=== PATIENT | female | born 1960 | race Caucasian/White ===

== ENCOUNTER 2024-07-03 09:09 | Emergency (ER) | payer BC, MEDICAID ==
[~2024-07-03] VITALS: Ht 162.6 cm; Wt 69.3 kg
[~2024-07-03 09:09] MED LIST: NO HOME MEDS
[2024-07-03 09:26] VITALS: TEMP 98
[2024-07-03] MEDS ORDERED: iohexol 300mg/ml 100ml inj. ONE (10:26)
[2024-07-03] MEDS: normal saline 1000ml 1,000 ML IV ONE (10:28)
[2024-07-03] MEDS: ondansetron/PF 4mg/2ml inj IV ONE (10:28)
[2024-07-03] MEDS: ketorolac trometh 15mg/ml vial 15 MG/ML ML IV ONE (10:28)
[2024-07-03 10:40] LABS: BASOPHILS # (AUTO) 0.1 X10'3 (0-0.2); EOSINOPHILS # (AUTO) 0.1 X10'3 (0-0.9); EOSINOPHILS % (AUTO) 1.3 % (0-6); HEMATOCRIT 37.4 % (35.0-45.0); HEMOGLOBIN 12.7 g/dl (12.0-16.0); LYMPHOCYTES # (AUTO) 1.6 X10'3 (1.1-4.8); LYMPHOCYTES % (AUTO) 20.1 % (21-51); MEAN CORPUSCULAR HEMOGLOBIN 32.6 PG (27.0-31.0); MEAN CORPUSCULAR HGB CONC 34.1 g/dL (33.0-36.5); MEAN CORPUSCULAR VOLUME 95.9 FL (78-98); MEAN PLATELET VOLUME 6.4 FL (7.4-10.4); MONOCYTES # (AUTO) 0.6 X10'3 (0-0.9); MONOCYTES % (AUTO) 7.5 % (2-12); NEUTROPHILS # (AUTO) 5.4 X10'3 (1.8-7.7); NEUTROPHILS % (AUTO) 70.1 % (42-75); PLATELET COUNT 329 X10'3 (140-440); RED CELL DISTRIBUTION WIDTH 13.3 % (11.5-14.5); WHITE BLOOD COUNT 7.7 X10'3 (4.5-11.0)
[2024-07-03 10:45] LABS: BILIRUBIN,URINE NEGATIVE (Neg); CLARITY,URINE SLIGHTLY CLOUDY (Clear); COLOR,URINE YELLOW (Yellow); GLUCOSE, URINE NEGATIVE (Neg); KETONES,URINE NEGATIVE (Neg); LEUKOCYTE ESTERASE ,URINE NEGATIVE (Neg); NITRITES, URINE NEGATIVE (Neg); OCCULT BLOOD,URINE NEGATIVE (Neg); PROTEIN,URINE NEGATIVE (Neg); UROBILINOGEN,URINE 0.2 E.U/dL (0.2-1.0)
[2024-07-03 10:52] LABS: UA COLLECTION TYPE CLN CATCH MIDSTREAM
[2024-07-03 10:53] LABS: BACTERIA,URINE 2+ /HPF (Neg)
[2024-07-03 10:54] LABS: RBC,URINE 0-2 /HPF (0-2); SQUAMOUS EPITHELIAL CELL,UR MANY /LPF (FEW); WBC,URINE 0-4 /HPF (0-4)
[2024-07-03 11:02] LABS: ALANINE AMINOTRANSFERASE 16 U/L (12-78); ALBUMIN 3.7 G/DL (3.4-5.0); ALKALINE PHOSPHATASE 55 IU/L (46-116); ANION GAP 7 (8-16); ASPARTATE AMINO TRANSFERASE 15 U/L (10-37); BILIRUBIN,TOTAL 0.4 MG/DL (0.1-1.0); BLOOD UREA NITROGEN 23 MG/DL (7-18); BUN/CREATININE RATIO 22.5 (10.0-20.0); CALCIUM 9.4 MG/DL (8.5-10.1); CHLORIDE 104 MMOL/L (99-107); CREATININE 1.02 MG/DL (0.40-0.90); GLUCOSE 94 MG/DL (70-104); LIPASE 55 U/L (16-77); POTASSIUM 4.7 MMOL/L (3.5-5.1); SODIUM 140 MMOL/L (135-145); TOTAL CARBON DIOXIDE 28.9 MMOL/L (24-32); TOTAL PROTEIN 7.4 G/DL (6.4-8.2); eCRCL 49 ML/MIN; eGFR 55 ML/MIN
[2024-07-03 12:43] VITALS: BP 123/92; PULSE 62; RESP 16; O2SAT 99
== END 2024-07-03 12:55 | disposition home or self-care (01) ==
LOC: ER 09:10
DX: N28.89 Other specified disorders of kidney and ureter (principal); R10.12 Left upper quadrant pain; I10 Essential (primary) hypertension; F32.A Depression, unspecified; Z88.5 Allergy status to narcotic agent; Z90.49 Acquired absence of other specified parts of digestive tract
CPT/HCPCS: 36415; 74177; 80053; 81001; 83605; 83690; 85025; 96360; 96361; 99285; J7030; Q9967

== ENCOUNTER 2025-04-29 06:12 | Emergency (ER) | payer MEDICAID ==
[~2025-04-29] VITALS: Ht 162.6 cm; Wt 66.4 kg
--- NOTE | 2025-04-29 07:25 | Physician Documentation ---
History of Present Illness ~ Chief Complaint: Hip pain Stated Complaint: BACK PAIN Time Seen by MD: 06:30 Primary Medical Doctor: MARKO BOWERS 64-year-old female presenting with lower back, bilateral hip and upper back and neck pain after she sustained a mechanical fall four days ago. Patient states that she was at home when her legs appear to have given out on her and she fell landing mainly on her right side. She had immediate pain in her lower back and in both of her hips mainly on the right. She was able to get up with the help of a family member but since that time she has had severe pain in the lower back, bilateral hips, neck and upper back. She also states that prior to the fall she was experiencing a lot of tingling like sensations in all of her extremities as well as some weakness which is unusual for her. She denies any dizziness, syncopal events, chest pain, fever, chills or any other associated symptoms. Tetanus within 5 Years?: Yes Medication Reconciliation Allergies: Coded Allergies: codeine (Verified Allergy, Unknown, 07/03/24) Miscellaneous Medications Home Med List (No Home Medications), (Reported) Past Medical History Past Medical History: Hypertension, Depression Past Surgical History: cholecystectomy Other Past Family History: heart disease Alcohol Use: None Lives with: S/O Lives In: Home Occupation: employed Review of Systems All Other Systems at this time: Reviewed and Negative Physical Exam Vital Signs: Temperature: 97.2, Source: Temporal, Heart Rate: 65, Respiratory Rate: 15, BP: 109/70, Pulse Oximetry: 99, Weight: 66.360 Physical Exam I have reviewed the triage vitals. CONST: Well developed and well nourished. In no acute distress HENT: Head Atraumatic EYES: Pupils are equal, round and reactive to light. Normal conjunctiva NECK: Normal range of motion. Supple. CARDIO: Normal rate and regular rhythm. No murmurs, rubs, or gallops. S1, S2. PULM/CHEST: No respiratory distress. Lungs clear to auscultation. No wheeze ABD: Soft and nontender. Nondistended. Bowel sounds normal. No guarding. : Exam deferred MSK: Antalgic gait due to pain. Patient is unsteady on her feet. Back-there is normal appearance of the lower back, there is tenderness to palpation over the lumbar spine mainly over L4 and L5 vertebrae. Flexion and extension of the spine causes severe pain. Straight leg raise is positive on the right. There is normal appearance of the mid and upper back areas. Tenderness to palpation over the thoracic spine mainly T8 through T12. Normal appearance of the neck. Tenderness to palpation over the cervical vertebrae about C4 through C7. Range of motion causes some pain. NEURO: Alert and oriented to person, place and time. Moving all extremities SKIN: Warm and dry. PSYCH: Normal mood and affect. Good eye contact. Progress Results/Orders Results/Orders Orders - QUENTIN JOSHI MD Ct Pelvis (04/29/25 ) Ct Cervical Spine (04/29/25 ) Ct T&L Spine (04/29/25 ) Regular Diet (04/29/25 Lunch) Completed Orders - QUENTIN JOSHI MD Electrocardiogram (04/29/25 07:00) Cbc/Diff (04/29/25 07:00) ESR (04/29/25 07:00) C-Reactive Protein (04/29/25 07:00) Urinalysis, Cult If Indicated (04/29/25 07:00) MG (04/29/25 07:00) Hs Troponin I W Calculations (04/29/25 07:00) CMP (04/29/25 07:00) Ct Pelvis (04/29/25 ) Ct Cervical Spine (04/29/25 ) Ketorolac Trometh 30mg/Ml Vial (Toradol (04/29/25 07:05) Acetaminophen 325mg Tablet (Tylenol Tabl (04/29/25 07:05) Ct T&L Spine (04/29/25 ) Oxycodone Immed Release Tablet (Oxy Ir T (04/29/25 08:40) Medications Received in ER Medications (Trade) Dose Ordered Sig/Reyes Route PRN Reason Start Time Stop Time Status Last Admin Dose Admin (Toradol inj. 30mg/ml) 30 mg ONCE ONCE IV 04/29/25 07:05 04/29/25 07:06 DC 04/29/25 07:38 30 MG (Tylenol tablet) 975 mg ONCE ONCE PO 04/29/25 07:05 04/29/25 07:06 DC 04/29/25 07:37 975 MG (OXY IR tablet) 10 mg ONCE ONCE PO 04/29/25 08:40 04/29/25 08:47 DC 04/29/25 08:57 10 MG Vital Signs 04/29/25 04/29/25 04/29/25 04/29/25 06:13 07:38 07:38 07:46 Temp 97.2 97.4 Pulse 65 60 Resp 15 16 16 16 B/P (MAP) 109/70 135/75 (95) Pulse Ox 99 98 O2 Flow Rate 0 04/29/25 09:38 Temp 97.4 Pulse 54 Resp 18 B/P (MAP) 129/77 (94) Pulse Ox 95 O2 Flow Rate 0 Laboratory Tests Test 04/29/25 07:45 04/29/25 08:54 White Blood Count 4.3 L Red Blood Count 4.26 Hemoglobin 13.7 Hematocrit 39.8 Mean Corpuscular Volume 93.4 Mean Corpuscular Hemoglobin 32.2 H Mean Corpuscular Hemoglobin Concent 34.5 Red Cell Distribution Width 13.5 Platelet Count 341 Mean Platelet Volume 6.4 L Neutrophils (%) (Auto) 53.8 Lymphocytes (%) (Auto) 29.4 Monocytes (%) (Auto) 11.5 Eosinophils (%) (Auto) 4.0 Basophils (%) (Auto) 1.3 H Neutrophils # (Auto) 2.3 Lymphocytes # (Auto) 1.3 Monocytes # (Auto) 0.5 Eosinophils # (Auto) 0.2 Basophils # (Auto) 0.1 CBC Comment Erythrocyte Sedimentation Rate 13 Sodium Level 132 L Potassium Level 5.0 Chloride Level 97 L Carbon Dioxide Level 28.0 Anion Gap 7 L Blood Urea Nitrogen 30 H Creatinine 1.15 H Estimated GFR/1.73 m2 48 BUN/Creatinine Ratio 26.1 H Glucose Level 88 Calcium Level 9.5 Magnesium Level 2.1 Total Bilirubin 0.9 Aspartate Amino Transf (AST/SGOT) 27 Alanine Aminotransferase (ALT/SGPT) 20 Alkaline Phosphatase 53 Troponin I High Sensitivity 5 C-Reactive Protein 0.09 Total Protein 7.8 Albumin 4.4 Globulin 3.4 Albumin/Globulin Ratio 1.3 Chemistry Comments Urine Specimen Description Cln catch midstream Urine Color Yellow Urine Clarity Clear Urine pH 6.0 Urine Specific [place] 1.010 Urine Protein Negative Urine Glucose (UA) Negative Urine Ketones Trace H Urine Occult Blood Negative Urine Nitrite Negative Urine Bilirubin Negative Urine Urobilinogen 0.2 Urine Leukocyte Esterase Negative Urine Culture Indicated Not ind Volume Urine Centrifuged 10 ml Urine Comment EKG/XRAY/CT/US/VASC/MRI EKG : Additional Comment EKG as interpreted by me indicating sinus bradycardia with a rate of 58 beats per minute, no ischemia, normal axis CT : Impression EXAM: CT CT T L SPINE HISTORY: fall 4 days ago w/ pain in BL hips COMPARISON: None CTDIvol 15.1 mGy, DLP 817 mGy*cm. TECHNIQUE: Multiple axial CT images of the spine were obtained using bone algorithm. Axial and coronal reformatting was done. Bone and soft tissue windows were reviewed. FINDINGS: No evidence of definite acute fracture, spinal dislocation, or significant appearing acute subluxation is seen. Scoliosis. Multilevel degenerative changes of the spine. Suspicious right renal mass measures 5.2 cm. IMPRESSION: No definite CT evidence of acute fracture or dislocation of the bony thoracic and lumbar spine. CT CT PELVIS HISTORY: fall 4 days ago w/ pain in BL hips COMPARISON: None PROCEDURE: Helical CT images were obtained of the pelvis without intravenous contrast. Sagittal and coronal reconstructions are provided. ORAL CONTRAST: None. ADDITIONAL IMAGES: None TOTAL RADIATION DOSE: CTDIvol: 10 mGy DLP: 300 mGy x cm FINDINGS: BOWEL: There is severe colonic diverticulosis. VISUALIZED KIDNEYS AND URETER: Not visualized BLADDER: Normal. REPRODUCTIVE ORGANS: Appears atrophic LYMPH NODES: No lymphadenopathy. PERITONEUM / RETROPERITONEUM: Normal. VESSELS: Atherosclerotic ABDOMINAL WALL: Normal. BONES: Scattered degenerative changes are noted in the visualized osseous structures. IMPRESSION: No acute fracture or dislocation is visualized in the hips. CT CT CERVICAL SPINE INDICATION: fall 4 days ago w/ pain in BL hips EXAM DATE: 04/29/2025 07:12 AM COMPARISON: None RADIATION DOSE: CTDIvol: 19 mGy, DLP: 413 mGy*cm PROCEDURE: Utilizing the CT scanner, contiguous axial images were obtained th rough the cervical spine. Coronal and sagittal reformatted images were then generated. All CT scans at this medical facility are performed using dose modulation techniques as appropriate to a performed exam including the following: Automated exposure control was utilized; adjustment of the MA and/or KV according to patient size; and use of iterative reconstruction technique. FINDINGS: Alignment at the craniocervical junction is maintained. The cortical margins are intact. The vertebral body heights and cervical alignment are normal. The facet joints show normal alignment without fracture. The intervertebral disc spaces are narrowed and degenerative. The paraspinal soft tissues appear normal. 2.0 cm right thyroid nodule. 6 mm right apical lung nodule. On axial images: There is multi level posterior disc osteophyte complex with central canal narrowing, worst at C 5-C6 with moderate central canal narrowing and severe bilateral neuroforaminal narrowing. Facet and uncinate Spondylosis is seen. IMPRESSION: Multi level degenerative changes of the cervical spine, worse at C5-C6 with moderate central canal narrowing and severe neuroforaminal narrowing. No cervical spine fracture or subluxation. 2.0 cm right thyroid nodule. 6 mm right apical lung nodule. Medical Decision Making Additional Comment 64-year-old female presenting with acute on chronic lower back and neck pain. This occurred after a fall however the patient does have a longer history of the symptoms as well. I did do a CT of the cervical spine, thoracic spine and lower back. No acute fractures were visualized. The cervical spine did indicate degenerative changes indicating cervical spondylosis. Given her chronic pain and radiculopathy radiculopathy I have recommended the patient that she will likely need MRIs of her C-spine and L-spine for further evaluation. Additionally on the imaging a right-sided renal mass was seen. Radiologist recommendation was to get an MRI of this area for further evaluation. This can also be done as an outpatient. I ordered MRI of the C-spine, MRI L-spine and MRI abdomen with focus on the right kidney for further evaluation. I also advised the patient that she needs to follow up with the primary care physician for referral to possible PT. in the ED the patient was medicated with 30 mg of IV Toradol, 1 g of p.o. acetaminophen and 10 mg of p.o. oxycodone with good improvement of symptoms. I will discharge her home with a prescription for a Medrol Dosepak, diclofenac and 10 tablets of Percocet to be taken for breakthrough pain. I advised the patient to minimize the use of the Percocet and only use it for breakthrough pain and I warned her of the risks of dependence and addiction. Cures was also checked and no activity was seen. Advised the patient on judicious use of NSAIDs as well. She was advised to use the Medrol Dosepak 1st and then she may take the diclofenac as needed with Percocet for breakthrough pain. Follow up with primary care physician as mentioned. Return to the ED with any acutely worsening symptoms. Departure Disposition: HOME / SELF CARE / HOMELESS Impression: Primary Impression: Cervical spondylosis Additional Impressions: Lumbar contusion Lumbar strain Renal mass, right Condition: Improved Discharge Instructions: Contusion, Renal Mass, Spondylolysis Additional Instructions: Please take your medication as prescribed- please take the Medrol Dosepak 1st and then once finished with this medication you may take the diclofenac as needed. You may also take the Percocet at any time as needed for breakthrough pain. This is a strong and addictive medication and please minimize its use and only use for severe breakthrough pain that is uncontrolled by other medications. Avoid any strenuous activity for the next several days. Follow up with her primary care physician for re-evaluation and possible referral to physical therapy should pain not improve. On the CTs a right kidney mass was visualized. This is nonspecific but needs further evaluation with MRI. I did order MRIs of your neck, lower back as well as your right kidney. You may take these orders to any imaging facility to have them performed and then follow up with her primary care physician for further assessment. Return to the ED with any acutely worsening symptoms. Referrals: NO PRIMARY CARE PROVIDER (PCP) Prescriptions Lidocaine (Lidoderm) 5 % Adh..patch 1 PATCH TOP DAILY for 30 Days, #30 PATCH 0 Refills may wear up to 12 hours Prov: QUENTIN JOSHI MD 04/29/25 Oxycodone HCl/Acetaminophen (Percocet 10-325 mg Tablet) 10 Mg-325 Mg Tablet 1 TAB PO TID PRN PRN for pain for 4 Days, #10 TAB 0 Refills Prov: QUENTIN JOSHI MD 04/29/25 Methylprednisolone (Medrol Dosepak) 4 Mg Tab.ds.pk 0 PO UD, #21 TAB 0 Refills take 6 Pills Day 1, 5 Pills Day 2, 4 Pills Day 3, 3 Pills Day 4, 2 Pills Day 5 and 1 pill Day 6 Prov: QUENTIN JOSHI MD 04/29/25 Diclofenac Sodium (Diclofenac Sodium) 75 Mg Tablet.dr 1 TAB PO Q12H for 30 Days, #60 TAB 0 Refills Prov: QUENTIN JOSHI MD 04/29/25 Signature Scribe Signature: 1 Attestation: 1 QUENTIN JOSHI MD Apr 29, 2025 07:25
--- NOTE | 2025-04-29 07:33 | ELECTROCARDIOGRAPH REPORT ---
[facility] Test Date: 2025-04-29 Test Time: 07:31:02 Pat Name: ASAF CASTELLANOS Department: [facility] Patient ID: [facility]-[id number] Room: Gender: F Chain [employer]: : 1960 Requested By: QUENTIN JOSHI Order Number: [id number] Reading MD: Measurements Intervals Ray Rate: 58 P: 43 MT: 154 QRS: 74 QRSD: 88 T: 70 QT: 424 QTc: 417 Interpretive Statements Sinus bradycardia Low voltage, precordial leads ST elevation, consider inferior injury Please click the below link to view image of tracing.
[2025-04-29] MEDS: acetaminophen 325mg tablet PO ONE (07:37)
[2025-04-29] MEDS: ketorolac trometh 30MG/ML vial 30 MG/ML VIAL IV ONE (07:38)
--- NOTE | 2025-04-29 07:45 | RADIOLOGY REPORT ---
CT CT CERVICAL SPINE INDICATION: fall 4 days ago w/ pain in BL hips EXAM DATE: 04/29/2025 07:12 AM COMPARISON: None RADIATION DOSE: CTDIvol: 19 mGy, DLP: 413 mGy*cm PROCEDURE: Utilizing the CT scanner, contiguous axial images were obtained through the cervical spine . Coronal and sagittal reformatted images were then generated. All CT scans at this medical facility are performed using dose modulation techniques as appropriate t o a performed exam including the following: Automated exposure control was utilized; adjustment of th e MA and/or KV according to patient size; and use of iterative reconstruction technique. FINDINGS: Alignment at the craniocervical junction is maintained. The cortical margins are intact. Th e vertebral body heights and cervical alignment are normal. The facet joints show normal alignment wi thout fracture. The intervertebral disc spaces are narrowed and degenerative. The paraspinal soft tis sues appear normal. 2.0 cm right thyroid nodule. 6 mm right apical lung nodule. On axial images: There is multi level posterior disc osteophyte complex with central canal narrowing, worst at C 5-C6 with moderate central canal narrowing and severe bilateral neuroforaminal narrowing. Facet and uncinate Spondylosis is seen. IMPRESSION: Multi level degenerative changes of the cervical spine, worse at C5-C6 with moderate central canal na rrowing and severe neuroforaminal narrowing. No cervical spine fracture or subluxation. 2.0 cm right thyroid nodule. 6 mm right apical lung nodule.
--- NOTE | 2025-04-29 07:52 | RADIOLOGY REPORT ---
CT CT PELVIS HISTORY: fall 4 days ago w/ pain in BL hips COMPARISON: None PROCEDURE: Helical CT images were obtained of the pelvis without intravenous contrast. Sagittal and c oronal reconstructions are provided. ORAL CONTRAST: None. ADDITIONAL IMAGES: None TOTAL RADIATION DOSE: CTDIvol: 10 mGy DLP: 300 mGy x cm FINDINGS: BOWEL: There is severe colonic diverticulosis. VISUALIZED KIDNEYS AND URETER: Not visualized BLADDER: Normal. REPRODUCTIVE ORGANS: Appears atrophic LYMPH NODES: No lymphadenopathy. PERITONEUM / RETROPERITONEUM: Normal. VESSELS: Atherosclerotic ABDOMINAL WALL: Normal. BONES: Scattered degenerative changes are noted in the visualized osseous structures. IMPRESSION: No acute fracture or dislocation is visualized in the hips. Severe colonic diverticulosis.
--- NOTE | 2025-04-29 07:57 | RADIOLOGY REPORT ---
EXAM: CT CT T L SPINE HISTORY: fall 4 days ago w/ pain in BL hips COMPARISON: None CTDIvol 15.1 mGy, DLP 817 mGy*cm. TECHNIQUE: Multiple axial CT images of the spine were obtained using bone algorithm. Axial and esposito l reformatting was done. Bone and soft tissue windows were reviewed. FINDINGS: No evidence of definite acute fracture, spinal dislocation, or significant appearing acute subluxatio n is seen. Scoliosis. Multilevel degenerative changes of the spine. Suspicious right renal mass measures 5.2 cm. IMPRESSION: No definite CT evidence of acute fracture or dislocation of the bony thoracic and lumbar spine. Suspicious right renal mass, partially imaged. This may represent renal cell neoplasm. Recommend furt her evaluation with nonemergent MRI renal mass protocol.
[2025-04-29 07:58] LABS: BASOPHILS # (AUTO) 0.1 X10'3 (0-0.2); BASOPHILS % (AUTO) 1.3 % (0-1); EOSINOPHILS # (AUTO) 0.2 X10'3 (0-0.9); HEMATOCRIT 39.8 % (35.0-45.0); HEMOGLOBIN 13.7 g/dl (12.0-16.0); LYMPHOCYTES # (AUTO) 1.3 X10'3 (1.1-4.8); LYMPHOCYTES % (AUTO) 29.4 % (21-51); MEAN CORPUSCULAR HEMOGLOBIN 32.2 PG (27.0-31.0); MEAN CORPUSCULAR HGB CONC 34.5 g/dL (33.0-36.5); MEAN CORPUSCULAR VOLUME 93.4 FL (78-98); MEAN PLATELET VOLUME 6.4 FL (7.4-10.4); MONOCYTES # (AUTO) 0.5 X10'3 (0-0.9); MONOCYTES % (AUTO) 11.5 % (2-12); NEUTROPHILS # (AUTO) 2.3 X10'3 (1.8-7.7); NEUTROPHILS % (AUTO) 53.8 % (42-75); PLATELET COUNT 341 X10'3 (140-440); RED BLOOD COUNT 4.26 X10'6 (4.20-5.60); RED CELL DISTRIBUTION WIDTH 13.5 % (11.5-14.5); WHITE BLOOD COUNT 4.3 X10'3 (4.5-11.0)
[2025-04-29 08:10] LABS: ALANINE AMINOTRANSFERASE 20 U/L (12-78); ALBUMIN 4.4 G/DL (3.4-5.0); ALBUMIN/GLOBULIN RATIO 1.3 (1.1-1.5); ALKALINE PHOSPHATASE 53 IU/L (46-116); ANION GAP 7 (8-16); ASPARTATE AMINO TRANSFERASE 27 U/L (10-37); BILIRUBIN,TOTAL 0.9 MG/DL (0.1-1.0); BLOOD UREA NITROGEN 30 MG/DL (7-18); BUN/CREATININE RATIO 26.1 (10.0-20.0); C-REACTIVE PROTEIN 0.09 MG/DL (0.0-0.5); CALCIUM 9.5 MG/DL (8.5-10.1); CHLORIDE 97 MMOL/L (99-107); CREATININE 1.15 MG/DL (0.40-0.90); GLUCOSE 88 MG/DL (70-104); MAGNESIUM 2.1 MG/DL (1.5-2.4); SODIUM 132 MMOL/L (135-145); TOTAL PROTEIN 7.8 G/DL (6.4-8.2); eCRCL 43 ML/MIN; eGFR 48 ML/MIN
[2025-04-29] MEDS: oxyCODONE IR 5mg (immed. release) tablet PO ONE (08:57)
[2025-04-29 09:11] LABS: BILIRUBIN,URINE NEGATIVE (Neg); CLARITY,URINE CLEAR (Clear); COLOR,URINE YELLOW (Yellow); GLUCOSE, URINE NEGATIVE (Neg); KETONES,URINE TRACE mg/dl (Neg); LEUKOCYTE ESTERASE ,URINE NEGATIVE (Neg); NITRITES, URINE NEGATIVE (Neg); OCCULT BLOOD,URINE NEGATIVE (Neg); PROTEIN,URINE NEGATIVE (Neg); UROBILINOGEN,URINE 0.2 E.U/dL (0.2-1.0)
[2025-04-29 09:14] LABS: UA COLLECTION TYPE CLN CATCH MIDSTREAM
[2025-04-29 09:38] VITALS: BP 129/77; PULSE 54; RESP 18; TEMP 97.4; O2SAT 95
[2025-04-29] MEDS ORDERED: OXYC-150 PO (10:00)
[2025-04-29] MEDS ORDERED: METH4TAB81 PO (10:00)
[2025-04-29] MEDS ORDERED: DICL-343 PO (10:00)
[2025-04-29] MEDS ORDERED: LIDO-52 TOP (10:00)
== END 2025-04-29 10:24 | disposition home or self-care (01) ==
LOC: ER 06:13
DX: M47.812 Spondylosis without myelopathy or radiculopathy, cervical region (principal); S39.012A Strain of muscle, fascia and tendon of lower back, initial encounter; S30.0XXA Contusion of lower back and pelvis, initial encounter; N28.89 Other specified disorders of kidney and ureter; I10 Essential (primary) hypertension; F32.A Depression, unspecified; Z88.5 Allergy status to narcotic agent; Z90.49 Acquired absence of other specified parts of digestive tract; W19.XXXA Unspecified fall, initial encounter; Y93.89 Activity, other specified; Y92.009 Unspecified place in unspecified non-institutional (private) residence as the place of occurrence of the external cause; Y99.8 Other external cause status
CPT/HCPCS: 36415; 72125; 72128; 72131; 72192; 80053; 81003; 83735; 84484; 85025; 85651; 86140; 93005; 96374; 99285; J1885

== ENCOUNTER 2025-07-26 10:59 | Day surgery (SDC) | payer MEDICAID ==
[2025-07-26] VITALS (10 sets, daily range): BP systolic 97–113; BP diastolic 65–75; PULSE 68–78; RESP 16; TEMP 98.1; O2SAT 95–98
[~2025-07-26] VITALS: Ht 162.6 cm; Wt 55.0 kg
[~2025-07-26 10:59] MED LIST changes: +DICL-343 PO; +LIDO-52 TOP; +METH4TAB81 PO; +OXYC-150 PO
[2025-07-26] MEDS ORDERED: IBUP-2417 PO (12:10)
[2025-07-26] MEDS ORDERED: PREG150C47 PO (12:10)
[2025-07-26] MEDS ORDERED: ATOR40TA72 PO (12:10)
[2025-07-26] MEDS ORDERED: LEVO50TA8 PO (12:10)
[2025-07-26] MEDS ORDERED: METH-797 PO (12:10)
[2025-07-26] MEDS ORDERED: NORT75CA PO (12:10)
[2025-07-26] MEDS ORDERED: NICO-687 TD (12:10)
[2025-07-26] MEDS ORDERED: PER5325T PO (12:10)
--- NOTE | 2025-07-26 13:52 | PROGRESS NOTE ---
H&P - Interval Note Providers to CC ~ Patient examined and condition: Yes Interval changes as follows: H/O renal mass and R thyroid 2cm lesion TIRADS 4. Risks benefits alt of FNA thyroid nodule d/w pt and informed consent disclosed. Paper new H/P in chart today as well. ZOEY BOURGEOIS MD Jul 26, 2025 13:52
--- NOTE | 2025-07-26 13:53 | PROGRESS NOTE ---
Progress Note - Angio Providers to CC ~ Angio Progress Note: Approx 2cm R thyroid nodule FNA x 4 passes with slides and samples in carbowax. No immed complications. EBL less than 1cc. ZOEY BOURGEOIS MD Jul 26, 2025 13:53
--- NOTE | 2025-07-26 15:03 | RADIOLOGY REPORT ---
Right thyroid nodule FNA biopsy Reason for study: Patient with history of: History of renal carcinoma. History of TI RADS 4 right thyroid nodule 2cm in size. Procedure: THYROID ultrasound biopsy The nature, alternatives and risks of the procedure were discussed with the patient. Informed consent was disclosed to the patient. Surgical timeout performed. Utilizing ultrasound guidance and a 25-gauge needle, 4 separate passes were made into an approximate 2 cm hypoechoic nodule within the right thyroid lobe. Initially 3 cc 1% lidocaine solution used for local anesthesia. Samples were placed on slides as well as Carbo wax. There were no immediate complications with post biopsy color Doppler imaging demonstrated no evidence of extravasation or hematoma. Impression: Successful right thyroid nodule FNA biopsy. Pathology report is pending. Patient tolerated procedure well with no immediate complications.
--- NOTE | 2025-08-01 13:52 | PATHOLOGY REPORT ---
[facility] [address] [place] [address] NON-WRITING TUTOR CYTOLOGY REPORT CaseNumber: [id number] Surgeon:Christopher Steve D.O. CLINICAL INFORMATION CLINICAL INFORMATION: Right thyroid nodule. DIAGNOSIS DIAGNOSIS: THYROID, RIGHT; FINE NEEDLE ASPIRATION - VERY RARE FOLLICULAR CELLS AND ABUNDANT COLLOID. - CONSISTENT WITH A COLLOID NODULE. - BETHESDA CATEGORY II. MICROSCOPIC DESCRIPTION MICROSCOPIC DESCRIPTION: 1 H&E stained cellblock and 4 Pap smears are examined. The cellblock shows predominantly blood with very rare follicular cells with mildly irregular nuclear membranes and coarse chromatin. The Pap smear show abundant colloid. Very rare tight clusters of follicular cells with mild variation in nuclear size and coarse to finely stippled chromatin and multiple nucleoli, are present. I do not see nuclear pseudoinclusions. [place] System for Reporting Thyroid Cytopathology: Skyler Collazo and Jorge Mercedes (eds.). The [place] System for Reporting Thyroid Cytopathology, DOI 10.1007/[id number]_1, [employer] [facility] 2009 (pages 1-171). Diagnostic Category: ( Estimated Risk of malignancy % ) I. Nondiagnostic II. Benign: (0-3%) III. Atypia/Follicular Lesion of Undetermined Significance: (5-15%) IV. Suspicious for Follicular Neoplasm: (15-30% ) V. Suspicious for Malignancy: (60-75%) . Malignant: (97-99%) GROSS DESCRIPTION GROSS DESCRIPTION: Specimen is received, labeled with the patient's name and identified as "right thyroid" are four prepared smears and one bottle of cloudy cytostat red having a total volume of 10 mL. One cell block is prepared and submitted as A1. The time at which the specimen was removed was 1350. The time at which the specimen was placed in formalin [id number]. (jessica) Electronically signed by: Mateo Kwon, 08/01/2025 1:19:00 PM
== END 2025-07-26 15:14 | disposition home or self-care (01) ==
LOC: SSTAY O 10:59
PROVIDERS: ATTEND Radiology Diagnostic Radiology
DX: E04.1 Nontoxic single thyroid nodule (principal); I12.9 Hypertensive chronic kidney disease with stage 1 through stage 4 chronic kidney disease, or unspecified chronic kidney disease; N18.9 Chronic kidney disease, unspecified; E78.5 Hyperlipidemia, unspecified; E03.9 Hypothyroidism, unspecified
CPT/HCPCS: 10005

== ENCOUNTER 2025-08-22 08:25 | Outpatient (CLI) | payer MEDICAID ==
[2025-08-20 09:06] LABS: CREATININE 0.67 MG/DL (0.40-0.90); TOTAL CARBON DIOXIDE 34.2 MMOL/L (24-32); eGFR 89 ML/MIN
[~2025-08-22 08:25] MED LIST changes: +ATOR40TA72 PO; -DICL-343 PO; +IBUP-2417 PO; +LEVO50TA8 PO; -LIDO-52 TOP; +METH-797 PO; -METH4TAB81 PO; +NICO-687 TD; -NO HOME MEDS; +NORT75CA PO; -OXYC-150 PO; +PER5325T PO; +PREG150C47 PO; +iohexol 300mg/ml 100ml inj. ONE
--- NOTE | 2025-08-22 11:58 | RADIOLOGY REPORT ---
Exam: CT CT CHEST ABDOMEN PELVIS IV CON History: MALIGNANT NEOPLASM OF RIGHT KIDNEY, EXCEPT RENAL PELVIS Comparison Study: CT CT PELVIS on DOS: 04/29/25, CT CT ABDOMEN PELVIS on DOS: 07/03/24 Technique: Multidetector spiral CT of the chest, abdomen and pelvis was performed from lower neck to pubic symphysis. Intravenous contrast was administered during this examination. Portal venous imaging was obtained. Axial, coronal and sagittal multiplanar reformats were performed by the technologist on a separate workstation. Radiation Dose : 1. Chest/Abdomen/Pelvis: CTDIvol 19.1 mGy, DLP 1580 mGy*cm. Findings: Lower neck: Normal thyroid. Lungs: 0.6 cm nodule in the right upper lobe. 0.4 cm nodule in the right lower lobe. 0.5 cm nodule in the right lung base. Dependent atelectasis. Heart/Vascular Structures: Cardiomegaly. Coronary artery calcifications. Vascular calcifications of the aorta. Lymph Nodes: No adenopathy. Pleura: No pleural effusion or significant pneumothorax. Liver: Hepatic steatosis. Gallbladder and Biliary Tree: Cholecystectomy. Spleen: Unremarkable. Pancreas: The pancreas is normal in appearance without focal lesions or abnormal enhancement. Adrenal Glands: Unremarkable. Kidneys: Enhancing right upper pole renal mass suspicious for neoplasm measures 5.4 cm. Left kidney is unremarkable. No hydronephrosis. Bladder: Mild diffuse thickening of the urinary bladder. Bowel: The stomach is grossly normal in appearance. Small bowel and colon are normal in caliber and distribution. Diverticulosis. The appendix is unremarkable. Ascites: Absent. Lymphadenopathy: No mesenteric, retroperitoneal or periportal lymphadenopathy. Abdominal Wall and Mesentery: Unremarkable. Vasculature: The visualized abdominal aorta is normal in size and caliber. Abdominal and pelvic vessels demonstrate normal enhancement. Vascular calcifications of the aorta. Pelvic Organs: Unremarkable. Musculoskeletal: Chronic appearing left posterior 4th rib fracture. Scoliosis. Multilevel degenerative changes of the spine. No aggressive focal bony lesions, acute fractures or dislocation. IMPRESSION: Enhancing right upper pole renal mass suspicious for neoplasm measures 5.4 cm. Multiple pulmonary nodules measuring up to 0.6 cm in the right upper lobe. Hepatic steatosis. No definite osseous metastatic lesions. Mild diffuse thickening of the urinary bladder wall is nonspecific but can be seen in chronic bladder outlet obstruction or mild cystitis. Clinical correlation advised.
== END 2025-08-22 23:59 | disposition home or self-care (01) ==
LOC: RAD 08:25
PROVIDERS: ATTEND Urology
DX: C64.1 Malignant neoplasm of right kidney, except renal pelvis (principal); C79.49 Secondary malignant neoplasm of other parts of nervous system; M48.02 Spinal stenosis, cervical region
CPT/HCPCS: 36415; 71260; 74177; 80048; Q9967

== ENCOUNTER 2025-08-22 08:31 | Outpatient (CLI) | payer MEDICAID ==
[~2025-08-22 08:31] MED LIST changes: -iohexol 300mg/ml 100ml inj. ONE
--- NOTE | 2025-08-22 10:08 | RADIOLOGY REPORT ---
[facility] INDICATION: METASTASIS TO SIPINAL CORD COMPARISON: CT CT T L SPINE on DOS: 04/29/25, CT CT CERVICAL SPINE on DOS: 04/29/25 TECHNIQUE: 6 views of the cervical spine were obtained. FINDINGS: Straightening of the cervical spine. Postsurgical spinal hardware in the cervical spine severe multilevel degenerative disc disease of the cervical spine. No acute fracture, vertebral compression deformity or aggressive osseous lesions. The imaged lung apices are unremarkable. IMPRESSION: No acute fracture. If concern for metastatic disease, MRI is recommended.
--- NOTE | 2025-08-22 12:29 | RADIOLOGY REPORT ---
PROCEDURE: MR MRI C SPINE Indication: METASTASIS OF SPINAL CORD COMPARISON: None TECHNIQUE: Multiplanar multisequence images of the the cervical spine are obtained with and without contrast. FINDINGS: There is posterior fixation hardware C5 through C7. This results in susceptibility artifact, severely limiting evaluation. Straightening of normal cervical spine curvature with moderate to severe multilevel disc space narrowing and desiccation. There is enhancement within the T1 vertebral body extending to the bilateral pedicles, [id number]-left. At the C2/C3 level, there is left ventral epidural enhancement measuring 8 by 6 mm extending into the left neural foraminal region. There is also enhancement within the left neural foraminal region at C2-3. There is enhancement within the right C6-7 ventral CSF space region measuring 8 X 3 x 8 . This extends into the bilateral C6-7 neural foraminal region. On the T2 and inversion recovery images, there is increased T2 signal within the cervical cord at C5 through C7, suboptimally characterized due to the extensive susceptibility artifact. No definitive cord enhancement seen. C2-3: Small disc osteophyte complex. Thecal sac measures 11 mm AP. No spinal canal stenosis. C3-4: Disc osteophyte complex narrowing ventral and dorsal CSF space. Thecal sac measures 8 mm AP. Olqr-oo-wqsravlv spinal canal stenosis. C4-5: Disc osteophyte complex effacing the ventral and dorsal CSF spaces. Thecal sac measures 8 mm AP. Esib-hn-sebvbngy spinal canal stenosis. Moderate to severe bilateral neural foraminal stenosis. C5-6: There is extensive susceptibility artifact limiting evaluation. Thecal sac measures approximately 8 mm. Mhbk-uw-yojykior spinal canal stenosis. C6-7: Extensive susceptibility artifact, limiting evaluation. Thecal sac measures 8 mm AP consistent with sfcp-ak-phfpwaxk spinal canal stenosis. C7-T1: No spinal canal stenosis. Moderate bilateral neural foraminal stenosis. Small bilateral mastoid effusions. 2.2 cm right thyroid nodule. IMPRESSION: Very limited examination due to susceptibility artifact from C5 through C7 posterior hardware. There is enhancement within the T1 vertebral body extending to the bilateral pedicles, [id number]-[id number]-dhie-left. This is suspicious for metastatic disease. At the C2/C3 level, there is left ventral epidural enhancement measuring 8 x 6 mm extending into the left neural foraminal region. There is also enhancement within the left neural foraminal region at C2-3. This is also suspicious for dural metastases/metastases. There is enhancement within the right C6-7 ventral CSF space region measuring 8 X 3 x 8 . This extends into the bilateral C6-7 neural foraminal region. This is also suspicious for metastatic disease. On the T2 and inversion recovery images, there is increased T2 signal within the cervical cord at C5 through C7, suboptimally characterized due to the extensive susceptibility artifact. No definitive cord enhancement seen. This could represent cord myelomalacia, cord edema. Recommend obtaining CT myelogram further characterized given the limitations of this examination. Xcqv-yx-eoyrzzny multilevel cervical spinal canal stenosis.
[2025-08-22] MEDS ORDERED: GADOTERATE MEGLUMINE 7.5 MMOL/15 ML VIAL IV ONE (14:41)
== END 2025-08-22 23:59 | disposition home or self-care (01) ==
LOC: MRI 08:31
PROVIDERS: ATTEND Neurological Surgery
DX: C79.49 Secondary malignant neoplasm of other parts of nervous system (principal)
CPT/HCPCS: 72052; 72156; A9575